=== PATIENT | female | born 2000 | race Caucasian/White ===

== ENCOUNTER 2022-03-05 13:04 | Emergency (ER) | payer MEDICAID ==
[~2022-03-05] VITALS: Ht 165.1 cm; Wt 66.8 kg
[2022-03-05 14:08] LABS: BASO # 0.01 K/mm3 (0.02-0.10); HEMATOCRIT 41.6 % (35.0-45.0); HEMOGLOBIN 13.8 g/dL (12.0-15.0); LYMPH# 1.85 K/mm3 (1.20-3.40); MEAN CELL VOLUME 81 fl (78-95); MEAN CORPUSCULAR HEMOGLOBIN 27 pg (26-32); MEAN CORPUSCULAR HGB CONC 33 g/dL (33-37); MEAN PLATELET VOLUME 11.4 fl (7.4-10.4); MONO # 0.72 K/mm3 (0.10-0.60); NEU # 2.44 K/mm3 (1.40-6.50); PLATELET COUNT 223 K/mm3 (130-400); RED BLOOD COUNT 5.13 M/mm3 (4.10-5.30); RED CELL DISTRIBUTION WIDTH 12.5 % (11.5-14.5); WHITE BLOOD COUNT 5.1 K/mm3 (4.8-10.8)
[2022-03-05 14:22] LABS: ALBUMIN 4.5 g/dL (3.5-5.0); POTASSIUM 3.8 mmol/L (3.5-5.1); SODIUM 140 mmol/L (136-145)
[2022-03-05 14:23] LABS: CALCIUM 9.5 mg/dL (8.3-10.5)
[2022-03-05 14:24] LABS: GLUCOSE 86 mg/dL (65-105); TOTAL PROTEIN 7.4 g/dL (6.4-8.3)
[2022-03-05 14:25] LABS: CARBON DIOXIDE 22 mmol/L (22-29)
[2022-03-05 14:26] LABS: TOTAL BILIRUBIN 0.8 mg/dL (0.2-1.2)
[2022-03-05 14:30] LABS: AST-SGOT 16 U/L (5-34)
[2022-03-05 14:31] LABS: ALT/SGPT 23 U/L (0-55)
[2022-03-05 14:41] LABS: TROPONIN-I < 0.030 ng/mL (<0.030)
[2022-03-05 14:56] LABS: D-DIMER 0.25 mg/L FEU (0.15-0.50)
[2022-03-05] MEDS ORDERED: RT ALBUTEROL CC18 GM IH (15:34)
[2022-03-05] MEDS ORDERED: ZITHROMAX Z PA250 MG PO (15:34)
[2022-03-05] MEDS ORDERED: ZOFRAN ODT4 MG PO (15:43)
== END 2022-03-05 16:20 | disposition home or self-care (01) ==
LOC: ED 13:04
PROVIDERS: Physician Assistant
DX: J40 Bronchitis, not specified as acute or chronic (principal); Z87.891 Personal history of nicotine dependence

== ENCOUNTER 2022-05-28 10:09 | Emergency (ER) | payer MEDICAID ==
[~2022-05-28] VITALS: Ht 165.1 cm; Wt 64.9 kg
[~2022-05-28 10:09] MED LIST: RT ALBUTEROL CC18 GM IH; ZITHROMAX Z PA250 MG PO; ZOFRAN ODT4 MG PO
[2022-05-28] MEDS ORDERED: NEB INH (11:21)
[2022-05-28] MEDS ORDERED: ALBUTEROL2.5 MG/3 M IH (11:21)
[2022-05-28 11:32] VITALS: BP 126/77
== END 2022-05-28 11:30 | disposition home or self-care (01) ==
LOC: ED 10:09
DX: J45.909 Unspecified asthma, uncomplicated (principal); Z87.891 Personal history of nicotine dependence

== ENCOUNTER → 2022-08-16 | Outpatient (CLI) | payer MEDICAID ==
[~2022-08-16] MED LIST changes: +ALBUTEROL2.5 MG/3 M IH; +NEB INH
== END ==
LOC: LAB 12:32
DX: R11.0 Nausea (principal); Z20.822 Contact with and (suspected) exposure to COVID-19

== ENCOUNTER → 2022-11-13 | Outpatient (CLI) | payer MEDICAID | LOC: LAB 19:47 | DX: Z20.822 Contact with and (suspected) exposure to COVID-19 (principal); J06.9 Acute upper respiratory infection, unspecified; F41.8 Other specified anxiety disorders; R11.2 Nausea with vomiting, unspecified ==

== ENCOUNTER → 2022-12-19 | Outpatient (CLI) | payer MEDICAID ==
[~2022-12-19] VITALS: Ht 152.4 cm; Wt 64.9 kg
[2022-12-19 13:11] VITALS: BP 121/49
[2022-12-19 13:16] LABS: BASO # 0.01 K/mm3 (0.02-0.10); EOS # 0.01 K/mm3 (0.04-0.40); EOS % 0.1 % (1.0-5.0); HEMATOCRIT 41.1 % (37.0-47.0); HEMOGLOBIN 14.1 g/dL (12.5-16.0); LYMPH# 1.71 K/mm3 (1.50-4.00); MEAN CELL VOLUME 80 fl (78-100); MEAN CORPUSCULAR HEMOGLOBIN 28 pg (27-31); MEAN CORPUSCULAR HGB CONC 34 g/dL (33-37); MEAN PLATELET VOLUME 11.5 fl (7.4-10.4); MONO # 0.58 K/mm3 (0.20-0.80); NEU # 4.45 K/mm3 (1.40-6.50); PLATELET COUNT 215 K/mm3 (130-400); RED BLOOD COUNT 5.11 M/mm3 (4.10-5.30); RED CELL DISTRIBUTION WIDTH 12.3 % (11.5-14.5); WHITE BLOOD COUNT 6.8 K/mm3 (4.8-10.8)
[2022-12-19 13:27] LABS: POTASSIUM 3.6 mmol/L (3.5-5.1)
[2022-12-19 13:28] LABS: CALCIUM 9.3 mg/dL (8.3-10.5)
[2022-12-19 14:05] VITALS: BP 102/52
== END ==
LOC: AMSURD 12:26
PROVIDERS: Family Medicine
DX: E86.0 Dehydration (principal); I95.1 Orthostatic hypotension
CPT/HCPCS: J2405; J7030